=== PATIENT | female | born 2005 | race Caucasian/White ===

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

== ENCOUNTER 2024-10-12 14:59 | Emergency (ER) | payer BC, SELFPAY ==
[2024-10-12 15:00] VITALS: BP 118/72; PULSE 93; RESP 16; TEMP 36.7; O2SAT 100; BMI 21.6
--- NOTE | 2024-10-12 15:02 | ECG_ITS ---
APPROVED REPORT Exam: Resting ECG HR:84 bpm ECG Measurements Heart Rate 84 AXES NV 137 P 69 QRSd 94 QRS 83 QT 344 T 52 QTc 385 Conclusion SINUS RHYTHM NONSPECIFIC T-WAVE ABNORMALITY BORDERLINE ECG Electronically signed by : LADAN IBANEZ, 10/12/2024 21:56:22
--- OUTSIDE RECORDS SUMMARY | 2024-10-12 15:08 | XMS_ITS | Clinical Summary ---
Author Organization [facility] Address [address] [place] [address] Phone Care Team Providers Care Monument Setter Name Role Phone Unavailable Primary Care Provider Unavailabl e Allergies No known active allergies Medications No known medications Social History Tobacco Use Types Packs/Day Years Used Date Smoking Tobacco: Never Smokeless Tobacco: Never Tobacco Cessation:Counseling Given: Not Answered Comments No Sex and Gender Information Value Date Recorded Sex Assigned at Not on file Legal Sex Female 8:11 PM EDT Gender Identity Not on file Sexual Orientation Not on file Obstetrics History Last Filed Vital Signs Vital Sign Reading Time Taken Comments Blood Pressure 133/83 12/24/2022 8:14 PM EDT Pulse 98 12/24/2022 8:14 PM EDT Temperature 37.5 C (99.5 F) 12/24/2022 8:14 PM EDT Respiratory Rate 18 12/24/2022 8:14 PM EDT Oxygen Saturation 98% 12/24/2022 8:14 PM EDT Inhaled Oxygen Concentration - - Weight 68 kg (150 lb) 12/24/2022 8:14 PM EDT Height - - Body Mass Index - - Plan of Treatment Health Maintenance Due Date Last Done Comments Annual Wellness Exam 01/03/2007 COVID-19 Vaccine ( season) 2023 04/15/2022, 03/25/2021, 06/08/2020, Additional history exists Influenza Vaccine (#1) 2024 , 12/30/2020, 11/13/2019, Additional history exists DTaP/TDaP/Td (7 - Td or Tdap) 08/14/2025 08/15/2015, 02/27/2008, 07/03/2005, Additional history exists Hepatitis B Vaccine Completed 2004, 2004, 2004 Pneumococcal Vaccine 0-49 Aged Out 2004, 2004, 2004, Additional history exists No longer eligible based on patient's age to complete this topic HPV Completed 03/21/2016, 04/2015, 08/15/2015 Meningococcal B Vaccine Completed 02/16/2020, 01/10 Insurance [employer] PPO
--- OUTSIDE RECORDS SUMMARY | 2024-10-12 15:08 | XMS_ITS | Clinical Summary ---
Author Organization Healthcare Address [address] [place] [address] Care Team Providers Care Leather Stripping Machine Operator Name Role Phone Fela Ross MD Primary Care Provider [phone] Allergies No known active allergies Medications * This document contains information received from the source organization and may not represent a complete record from that organization. ARIPiprazole (Abilify) 5 MG tablet Take 1 tablet (5 mg total) by mouth 1 (one) time each day. 30 tablet 2 11/21/2020 Active Tri-Estarylla 0.18/0.215/0.25 MG-35 MCG tablet Take 1 tablet by mouth 1 (one) time each day. 09/22/2020 Active lamoTRIgine (LaMICtal) 200 MG tablet Take 1 tablet (200 mg total) by mouth every night. 30 tablet 2 02/06/2021 Active amitriptyline (Elavil) 50 MG tablet Take 1 tablet (50 mg total) by mouth every night. 30 tablet 2 02/06/2021 Active Active Problems Problem Noted Date Diagnosed Date Adjustment disorder with depressed mood 01/01/20 20 Bipolar I disorder, most recent episode mixed, m ild 01/01/2020 Generalized anxiety disorder 01/01/2020 Depression 02/05/2019 Anxiety 01/01/2019 Family History Medical History Relation Name Comments Conversions - Other Father Chronic back pain Relation Name Status Comments Father Social History Tobacco Use Types Packs/Day Years Used Date Smoking Tobacco: Never Comments Unknown Sex and Gender Information Value Date Recorded Sex Assigned at Not on file Legal Sex Female 7:34 PM EDT Gender Identity Not on file Sexual Orientation Not on file Last Filed Vital Signs Vital Sign Reading Time Taken Comments Blood Pressure 124/76 03/04/2021 4:33 PM EST Pulse 80 03/04/2021 4:33 PM EST Temperature 36.6 C (97.9 F) 03/04/2021 4:33 PM EST Respiratory Rate - - Oxygen Saturation - - Inhaled Oxygen Concentration - - Weight 54.6 kg (120 lb 5.9 oz) 03/04/2021 4:33 P M EST Height 166 cm (5' 5.35 ) 03/04/2021 4:33 PM EST Body Mass Index 19.81 03/04/2021 4:33 PM EST Plan of Treatment Health Maintenance Due Date Last Done Comments [facility]-Depression Screening 2004 [facility]-Infant/Child/Adol SDOH Screenings 2004 [facility]-Varicella Vaccines (1 of 2 - 13+ 2-dose series) 01/03/2017 HPV Vaccines (1 - 3-dose series) 01/03/2019 [facility]- SDOH Screenings 01/03/2022 [facility]-Adult SDOH Screenings 01/03/2022 [facility]-DTaP,Tdap,and Td Vaccines (1 - Tdap) 01/03/2023 [facility]-Hepatitis B Vaccines (1 of 3 - 19+ 3-dose series) 01/03/2023 [id number] Vaccine (4 - season) 2023 03/25/2021, 06/08/2020, 05/18/2020 [facility]-Influenza Vaccine (#1) 10/30/202412/30, 11/13/2019, 01/19/2019, Additional history exists [facility]-Zoster Vaccines (1 of 2) 01/03/2054 [facility]-HIB Vaccines Aged Out No longer e ligible based on patient's age to complete this topic [facility]-Hepatitis A Vaccines Aged Out No longer eligible based on patient's age to complete this topic [facility]-IPV Vaccines Aged Out No longer e ligible based on patient's age to complete this topic [facility]-Pneumococcal Vaccine: Pediatrics (0 to 5 Years) and At-Risk Patients (6 to 49 Years) Aged Out No longer eligible based on patient's age to complete this topic [facility]-Rotavirus Vaccines Aged Out No lo nger eligible based on patient's age to complete this topic Insurance [employer] Care Teams Leather Stripping Machine Operator Relationship Specialty Start Date End Date Fela Ross MD [facility] [place] [address] PCP - General 07/12/20
[2024-10-12 15:35] LABS: Hematocrit 39.3 % (37.0-47.0); Hemoglobin 13.4 g/dL (12.2-16.2); Immature Granulocytes % 0.1 %; Mean Corpuscular HGB Conc 34.1 g/dL (31.8-35.4); Mean Corpuscular Hemoglobin 29.2 pg (27.0-31.2); Mean Corpuscular Volume 85.6 fl (81-99); Nucleated Red Blood Cells % 0 %; Platelet Count 259 K/mm3 (142-424); Red Blood Count 4.59 M/mm3 (4.20-5.40); Red Cell Distribution Width-SD 39.0 fL; White Blood Count 8.8 K/mm3 (4.5-13.0)
[2024-10-12 15:39] LABS: Albumin Level 4.8 g/dl (3.5-5.0); Chloride 104 mmol/L (98-107); Sodium 139 mmol/L (136-145)
[2024-10-12 15:40] LABS: Potassium 4.2 mmoL/L (3.5-5.1)
[2024-10-12 15:42] LABS: Alanine Aminotransferase 20 U/L (12-78); Albumin/Globulin Ratio 1.6 (1.1-1.8); Alkaline Phosphatase 74 U/L (38-126); Anion Gap 10.2 mEq/L (5-15); Aspartate Amino Transferase 31 U/L (14-36); Bilirubin,Total 0.9 mg/dl (0.2-1.3); Blood Urea Nitrogen 8 mg/dl (7-17); Carbon Dioxide 29 mmol/L (22.0-30.0); Creatinine Clearance Estimated 139 mL/min (50-200); Creatinine,Serum 0.60 mg/dl (0.52-1.04); Estimated Glomerular Filt Rate 127 ml/min (>60); GFR (African American) 154 ML/MIN (>60); Globulin 3.0 g/dL (1.3-3.2); Glucose 105 mg/dl (74-100); Total Protein,Serum 7.8 g/dl (6.3-8.2)
[2024-10-12 15:43] LABS: Calcium 9.7 mg/dl (8.4-10.2)
--- NOTE | 2024-10-12 15:57 | PC.NURSE ---
DR IBANEZ AT BEDSIDE
--- NOTE | 2024-10-12 16:06 | ED_ITS ---
Discharge Plan Disposition Patient Disposition: Home, Self-Care Prescriptions Prescriptions: No Action norgestimate-ethinyl estradiol [Ortho Tri-Cyclen (28)] 0.18/0.215/0.25 mg-35 mcg (28) tablet 1 tab PO DAILY amitriptyline 50 mg tablet 50 mg PO DAILY sertraline 50 MG tablet 50 mg PO DAILY amoxicillin [amoxicillin] 875 mg tablet 875 mg PO Q12H Qty: 20 0RF methylprednisolone 4 mg Tablets,Dose Pack 4 mg PO DIRECTED Qty: 21 0RF kfczxswxgggfzhu-lkuqsvodk-HE [Bromfed DM] 2-30-10 mg/5 mL Syrup 5 ml PO Q6H PRN (Reason: Cough) Qty: 240 0RF amoxicillin 875 mg tablet 875 mg PO Q12H Qty: 20 0RF methylprednisolone 4 mg Tablets,Dose Pack 4 mg PO DIRECTED 6 Days Qty: 21 0RF Rx Instructions: Take 1 pack as directed for 6 days nlkrlflygldqdyt-qidoevtro-TT [Bromfed DM] 2-30-10 mg/5 mL Syrup 5 ml PO Q6H PRN (Reason: Cough) Qty: 240 0RF methylprednisolone 4 MG tablet 4 mg PO DIRECTED Qty: 21 0RF Rx Instructions: Take as directed on package instructions azithromycin [Zithromax Z-Dhruv] 250 mg tablet See Rx Instructions .ROUTE .COMPLEX 5 Days Qty: 6 0RF Rx Instructions: For 250 mg dose pack: take 500 mg today (day 1), then 250 mg for 4 days (days 2-5) methylprednisolone [Medrol (Dhruv)] 4 mg tablets,dose pack See Rx Instructions .Route .COMPLEX 6 Days Qty: 21 0RF Rx Instructions: taper pack; epiqpdwlxmefmhj-ndpqdjzwo-RA [Bromfed DM] 2-30-10 mg/5 mL Syrup 10 ml PO Q4H PRN (Reason: Cough) Qty: 240 0RF oseltamivir [Tamiflu] 75 mg capsule 75 mg PO Q12H 5 Days Qty: 10 0RF Referrals Follow up/Referrals: Fela Ross MD [Primary Care Provider, Medical] - See instructions Activity Restrictions/Add. Instructions Additional Instructions/Restrictions: At this time it was felt you are safe to be discharged home. If new or worsening symptoms please do not hesitate to return the emergency department. Please call and schedule an appointment with Dr. De Oliveira as soon as you are able for your chest pain. Clinical Impressions Clinical Impression: Chest pain Print Language Print Language: Togolese Discharge ED Provider: Chris Cruz General Adult HPI General Chief complaint: Arrhythmia/Palpitations Stated complaint: CP Time Seen by Provider: 10/12/24 15:22 Mode of Arrival: Ambulatory Source of Information: Patient Description of Symptoms (Recalled from ER Triage Doc. by RN): PT REPORTS PALPITATIONS ABOUT 1-1.5 HOURS AGO. REPORTS TAKING VISTARIL AFTER SHE GOT HOME FROM WORK. REPORTS CONTINUED CHEST PRESSURE AND TIGHTNESS. WORSE WITH TAKING A DEEP BREATH History of Present Illness HPI narrative: Patient is a 19-year-old female with past medical history of bipolar 2 on desvenlafaxine who presents emergency department for evaluation of chest tightness. Onset was acute, earlier this afternoon, left inferior costal margin radiating to the left mid axillary line along the costal margin, worse with deep inspiration. No associated infectious symptoms or significant cough. No substernal chest pain reported. No trauma. Refractory to Vistaril. No other acute complaints at this time. Please note that above description of symptoms, in this electronic medical record under categorization of recalled from ER triage doctor by RN are reflective of an initial nursing assessment, however, is not reflective of my full history and physical exam that was personally taken and clarified. Consequentially, this preceding description of symptoms, which may include the patient's categorized chief complaint in the EMR, do not reflect my personal clinical impression, and the ultimate description of history of present illness and patient stated complaints should be deferred to this section of the note. Unless stated otherwise or congruent with this section of the note, additional signs, symptoms, or incongruence should be interpreted as inaccurate with my clinical impression. Related Data Home Medications ?Medication ?Instructions ?Recorded ?Confirmed amitriptyline 50 mg tablet 50 mg PO DAILY MIGRAINES 05/04/24 norgestimate-ethinyl estradiol 1 tab PO DAILY co ntrol 01/04/19 05/04/24 0.18mg/0.215mg/0.25mg-0.035mg(28)tablet (Ortho Tri-Cyclen (28)) sertraline 50 mg tablet 50 mg PO DAILY Anxiety 04/3005/04/24 Previous Rx's ?Medication ?Instructions ?Recorded methylprednisolone 4 mg tablet 4 mg PO DIRECTED #21 tabs 07/25/19 azithromycin 250 mg tablet See Rx Instructions PO .COM PLEX 5 12/14/21 (Zithromax Z-Dhruv) days #6 tabs jptkvqcdkrzmhkm-kvawdkangptnewx-IP 10 ml PO Q4H PRN Co ugh #240 mL 12/14/21 2 mg-30 mg-10 mg/5 mL oral syrup (Bromfed DM) methylprednisolone 4 mg tablets in See Rx Instructions .Route 12/14/21 a dose pack (Medrol (Dhruv)) .COMPLEX 6 days #21 tabs oseltamivir 75 mg capsule (Tamiflu) 75 mg PO Q12H 5 da ys #10 caps 02/17/22 amoxicillin 875 mg tablet 875 mg PO Q12H #20 tabs 06/29 11/21 vbxqylycxgrxikc-fijaoduzikdjerc-KM 5 ml PO Q6H PRN Cou gh #240 mL 07/17/22 2 mg-30 mg-10 mg/5 mL oral syrup (Bromfed DM) methylprednisolone 4 mg tablets in 4 mg PO DIRECTED #21 tabs 07/17/22 a dose pack amoxicillin 875 mg tablet 875 mg PO Q12H #20 tabs 10/22 xyykbzviocoxduq-vpkdhxjjolthmpd-MJ 5 ml PO Q6H PRN Cou gh #240 mL 11/07/23 2 mg-30 mg-10 mg/5 mL oral syrup (Bromfed DM) methylprednisolone 4 mg tablets in 4 mg PO DIRECTED 6 days #21 tabs 11/07/23 a dose pack Allergies Allergy/AdvReac Type Severity Reaction Status Date / Time No Known Allergies Allergy Verified 05/04/24 11:11 [facility] Disclaimer: The information contained in this section may have been updated after the patient was seen, as this information can be updated by other users. Medical History (Updated 10/12/24 @ 17:33 by Chris Cruz MD) Major depressive disorder Depression Anxiety History of anemia Surgical History History of colonoscopy Family History (Updated 04/28/24 @ 09:23 by Judi Caceres APRN) Mother FHx: mental illness Sister FHx: mental illness Father Hypertension Social History (Updated 04/28/24 @ 09:22 by Judi Caceres APRN) Smoking Status: Current every day smoker tobacco type: e-cigarettes second hand exposure: No alcohol intake: never counseling given: No substance use type: marijuana counseling given: No current occupational status: employed and student Travel in the last 8 weeks?: None adopted: No caregiver/support person: No foster care: No household members: family housing: house lives independently: No marital status: single number of children: 0 number of grandchildren: 0 education level: high school caffeine: Yes physical activity: none working smoke detector in home: Yes fire extinguisher in home: Yes carbon monox detector in home: Yes firearms in home: No do you feel safe at home: Yes victim of physical abuse: No victim of emotional abuse: No victim of sexual abuse: No would you like helpful sources: No Have you lived/traveled outside [place] in past 30 days?: No Contact w/someone who lives/traveled outside [place] past 30 days?: No Exposure to someone with infectious disease in past 14 days?: No Do you have a fever (greater than 100.4 F or 38 C)?: No Have you tested positive for COVID-19?: No Exposed to someone with COVID-19 in past 14 days?: No Do you have a sore throat?: No Do you have a cough?: No Do you have any weakness?: No Do you have any diarrhea?: No Are you experiencing any unusual bleeding?: No Do you have any muscle aches/pain?: No Do you have any abdominal pain?: No Are you experiencing loss of taste or smell?: No Other Medical History Have you received the Flu Vaccine for this season: No Have you received the Pneumonia Vaccine: No ROS Obtained: Yes Systems reviewed as appropriate & no additional complaints except as documented Physical Exam General General appearance: alert and in no apparent distress Head Head exam: atraumatic and normocephalic Eye Eye exam: Present PERRL and EOMI ENT ENT exam: Present mucous membranes moist Neck Neck exam: Present normal inspection Chest Chest inspection: Present normal inspection and symmetric chest wall rise Respiratory Respiratory exam: Present normal lung sounds bilaterally; Absent respiratory distress Cardiovascular Cardiovascular exam: Present regular rate and normal rhythm Abdominal Exam Abdominal exam: Present soft; Absent tenderness Extremities Exam Extremities exam: Present normal inspection Neurological Exam Neurological exam: Present alert and CN II-XII intact Psychiatric Psychiatric exam: Present normal affect Skin Skin exam: Present warm and dry Medical Decision Making Medical Records Screening: Per USPSTF and CDC recommendations, given the prevalence of disease in our region, it is our hospital?s policy to screen for HIV and viral Hepatitis for all patients aged 18 and over and those with ongoing risk factors. [place] Inquiry Pt receiving controlled substance: No Vital Signs: 10/12/24 15:00 10/12/24 16:30 10/12/24 17:00 Temperature 98.0 F Temperature Source Oral Pulse Rate 64 68 Pulse Rate [Apical] 93 H Respiratory Rate 16 20 19 Blood Pressure [Right Arm] 118/72 Blood Pressure Mean [Right Arm] 87 Blood Pressure Source [Right Arm] Automatic Cuff Blood Pressure Position [Right Arm] Sitting 02 Sat by Pulse Oximetry 100 100 98 Lab Data Lab Results 10/12/24 15:20: WBC 8.8, RBC 4.59, Hgb 13.4, Hct 39.3, MCV 85.6, MCH 29.2, MCHC 34.1, RDW 12.5, Plt Count 259, MPV 10.2, Neut % (Auto) 70.5, Lymph % (Auto) 20.4, [place] % (Auto) 8.1, Eos % (Auto) 0.7, Baso % (Auto) 0.2, Neut # (Auto) 6.2, Lymph # (Auto) 1.8, [place] # (Auto) 0.7, Eos # (Auto) 0.1, Baso # (Auto) 0.0, D- Dimer 0.75 H, Sodium 139, Potassium 4.2, Chloride 104, Carbon Dioxide 29, Anion Gap 10.2, BUN 8, Creatinine 0.60, Estimated Creat Clear 139, Estimated GFR 127, Est GFR ( Amer) 154, Glucose 105 H, Calcium 9.7, Magnesium 1.9, Total Bilirubin 0.9, AST 31, ALT 20, Alkaline Phosphatase 74, Troponin I < 0.01, Total Protein 7.8, Albumin 4.8, Globulin 3.0, Albumin/Globulin Ratio 1.6, Lipase 129, TSH 2.95, Free T4 1.09, Serum HCG, Qual Negative, HCV Ab ROSALIA w/Rflx PCR Qn Negative, HIV Ag/Ab Combo Qual Negative 10/12/24 15:20 10/12/24 15:20 Orders (Tests/Meds): ED MEDICATIONS Discontinued Medications Generic Name Dose Route Start Last Admin Trade Name Gracy PRN Reason Stop Dose Admin Acetaminophen 650 mg 10/12/24 16:05 10/12/24 16:15 Acetaminophen 325mg Tab PO 10/12/24 16:06 650 mg ONCE ONE Administration Aspirin 324 mg 10/12/24 16:05 10/12/24 16:14 Aspirin 81mg Chewable Tablet PO 10/12/24 16:06 324 mg ONCE ONE Administration Ketorolac Tromethamine 30 mg 10/12/24 16:05 10/12/24 16:16 Ketorolac 30mg/Ml Vial IV 10/12/24 16:06 30 mg ONCE ONE Administration ORDERS Category Date Time Status CXR 2 view (NOT portable) [XR chest 2V] Stat Exams 10/12/24 16:08 Completed Complete Blood Count Auto Diff Stat Lab 10/12/24 15:20 Completed Comprehensive Metabolic Panel Stat Lab 10/12/24 15:20 Completed D-Dimer Stat Lab 10/12/24 15:20 Completed Free T4 (Free Thyroxine) Stat Lab 10/12/24 15:20 Completed HIV Combo Stat Lab 10/12/24 15:20 Completed Hepatitis C Ab Qual. W/ RFX Stat Lab 10/12/24 15:20 Completed Lipase Stat Lab 10/12/24 15:20 Completed MG [Magnesium] Stat Lab 10/12/24 15:20 Completed Serum [HCG Qualitative, Serum] Stat Lab 10/12/24 15:20 Completed TSH [Thyroid Stimulating Hormone] Stat Lab 10/12/24 15:20 Completed Troponin I Q3H Lab 10/12/24 18:30 Ordered Troponin I Q3H Lab 10/12/24 21:30 Ordered Troponin I Stat Lab 10/12/24 15:20 Completed ECG Data Tracing #1: Independently turbid by me rate is 84, rhythm is regular, axis is normal, no ST elevation in anatomical contiguous leads, QTc 385. HEART Score History (anamnesis): Slightly suspicious ECG: Non-specific disturbance Age: <45 years Risk factors: No known risk factors Medical Decision Narrative: In summary patient is 19-year-old female past medical history described above who presents emergency department for evaluation of chest tightness worse with deep inspiration. Patient is hemodynamically stable nontoxic-appearing but arrival, afebrile. Differential diagnosis includes pleurisy, cardiac chest pain, pulmonary embolism, among others. Workup will be conducted with hematologic labs, two-view chest x-ray, D-dimer. Initial inventions include aspirin, Tylenol, Toradol. Initial workup reviewed by me hematologic labs are nonactionable no significant leukocytosis or transfusable anemia D-dimer excludes pulmonary embolism per years criteria no SUSANNA or critical electrolyte abnormalities troponin undetectably low. Chest x-ray informally inter by me no acute lobar opacities or large hemothorax. Formal read shows no acute pathology. Upon repeat evaluation patient was well-appearing wondering when she was going to go home. Given lack of cardiovascular risk factors and no concerning ischemic changes on EKG patient is appropriate for outpatient management at this time will follow-up with cardiology on outpatient basis was given return precautions. Critical Care Critical Care Time Critical Care Time: No
--- NOTE | 2024-10-12 16:08 | XR_ITS ---
PROCEDURE INFORMATION: Exam: XR Chest Exam date and time: 10/12/2024 4:28 PM Age: 19 years old Clinical indication: Other: Pleuritic L pain TECHNIQUE: Imaging protocol: Radiologic exam of the chest. Views: 2 views. COMPARISON: No relevant prior studies available. FINDINGS: Lungs: No consolidation or pulmonary edema. Pleural spaces: No pleural effusion. No pneumothorax. Heart/Mediastinum: The cardiomediastinal silhouette is not enlarged. Bones/joints: Visualized bones demonstrate no acute abnormality. IMPRESSION: No acute abnormality is identified.
[2024-10-12 16:10] LABS: Troponin I < 0.01 ng/ml (0.00-0.034)
[2024-10-12] MEDS: ASPIRIN 81MG CHEWABLE TABLET 324 MG PO (16:14)
[2024-10-12 16:15] LABS: Magnesium 1.9 mg/dl (1.6-2.3)
[2024-10-12] MEDS: ACETAMINOPHEN 325MG TAB 650 MG PO (16:15)
[2024-10-12] MEDS: KETOROLAC 30MG/ML VIAL 30 MG IV (16:16)
[2024-10-12 16:19] LABS: D-Dimer 0.75 ug/mL (0.0-0.5)
[2024-10-12 16:23] LABS: Lipase 129 U/L (23-300)
[2024-10-12 16:25] LABS: HCG Qualitative, Serum Negative (Negative)
[2024-10-12 16:30] VITALS: PULSE 64; RESP 20; O2SAT 100
[2024-10-12 16:33] LABS: Free T4 (Free Thyroxine) 1.09 ng/dl (0.78-2.19)
[2024-10-12 16:47] LABS: Thyroid Stimulating Hormone 2.95 uIU/mL (0.465-4.68)
[2024-10-12 17:00] VITALS: PULSE 68; RESP 19; O2SAT 98
[2024-10-12 17:13] LABS: Hepatitis C Ab Qual. W/ RFX NEGATIVE (Negative)
[2024-10-12 17:38] VITALS: BP 122/74; PULSE 71; RESP 20; TEMP 37; O2SAT 100
[2024-10-12 17:39] VITALS: BP 122/74; PULSE 84; RESP 18; TEMP 36.8; O2SAT 100
== END 2024-10-12 17:43 | disposition home or self-care (01) ==
PROVIDERS: Student in an Organized Health Care Education/Training Program; Emergency Provider Emergency Medicine; PCP Pediatrics
DX: R07.9 Chest pain, unspecified (principal); F17.290 Nicotine dependence, other tobacco product, uncomplicated
CPT/HCPCS: 71046; 80053; 83690; 83735; 84439; 84443; 84484; 84703; 85025; 85378; 86803; 87389; 93005; 96374; 99284; J1885